=== PATIENT | female | born 1995 | race Caucasian/White ===

== ENCOUNTER 2017-10-21 11:20 | Emergency (ER) | payer SELFPAY ==
--- NOTE | 2017-10-21 11:43 | PDOC ---
History of Present Illness - General Chief Complaint: Psychiatric Stated Complaint: PANIC ATTACK Time Seen by Provider: 10/21/17 11:30 History Source: Patient Exam Limitations: No Limitations - History of Present Illness Initial Comments: 10/21/17 12:55 Ms Watson is a 22 yo F with a prior history of migraines and panic attacks. Patient states that she was at work today, she works at a [employer]. While there she felt something come over her, she lowered herself to the ground , and close her eyes. When she opened her eyes she felt that she had tunnel vision or difficulty seeing. Patient denies chest pain, palpitations. Patient denies shortness of breath. Patient denies focal weakness or numbness. States because of her reaction, her employer called EMS. Patient states she's had similar symptoms to this, last one was 6 months ago. At that time she was taking Lexapro. She's discontinued her use of Lexapro because she had been doing well. Currently she denies suicidality, homicidality. She denies auditory or visual hallucination. PMH: Migraines, Panic Attacks Past surgical history: Denies Medication: Lexapro discontinued ALLERGIES: Bactrim --> rash She denies excessive alcohol use, denies drug or cigarette use GENERAL/CONSTITUTIONAL: No: fever, chills, weakness, loss of appetite. HEAD, EYES, EARS, NOSE AND THROAT: No: change in vision, ear pain, discharge, sore throat, throat swelling. CARDIOVASCULAR: No: chest pain, lightheadedness, palpitations, syncope RESPIRATORY: No: cough, shortness of breath, wheezing, hemoptysis, stridor. GASTROINTESTINAL: No: nausea, vomiting, diarrhea, abdominal cramping, rectal bleeding, constipation. GENITOURINARY: No: dysuria, hematuria, frequency, urgency, flank pain. MUSCULOSKELETAL: No: back pain, neck pain, joint pain, muscle swelling or pain SKIN AND BREASTS: No: lesions, pallor, rash or easy bruising. NEUROLOGIC: No: headache, vertigo, paresthesias, weakness ENDOCRINE: No: unexplained weight gain or loss HEMATOLOGIC/LYMPHATIC: No: anemia, easy bleeding, swelling nodes. GENERAL: The patient is in no acute distress, speaking in clear and complete sentences. HEAD: Normal with no signs of trauma. EYES: PERRLA, EOMI, sclera anicteric, conjunctiva clear. ENT: Ears normal, nares patent, oropharynx clear without exudates. Moist mucous membranes. NECK: Normal range of motion, supple LUNGS: Breath sounds equal, clear to auscultation bilaterally. No wheezes, and no crackles. HEART:Regular rate and rhythm, normal S1 and S2 without murmur, rub or gallop. ABDOMEN: Soft, nontender, normoactive bowel sounds. No guarding, no rebound. No masses palpable. EXTREMITIES: Normal range of motion, no edema. NEUROLOGICAL: Cranial nerves II through XII grossly intact. Normal speech. No focal neurological deficits. SKIN: Warm, Dry, normal turgor, no rashes or lesions noted. Past History - Past Medical History Allergies/Adverse Reactions: Allergies Allergy/AdvReac Type Severity Reaction Status Date / Time sulfamethoxazole Allergy Verified 10/21/17 11:22 [From Bactrim] trimethoprim [From Bactrim] Allergy Verified 10/21/17 11:22 Home Medications: Ambulatory Orders Escitalopram Oxalate [Lexapro -] 20 mg PO DAILY 10/21/17 ED Treatment Course - LABORATORY CBC & Chemistry Diagram: 10/21/17 12:17 10/21/17 12:17 Medical Decision Making - Medical Decision Making 10/21/17 12:57 If he presents emergency department status post an episode which she likens to a panic attack. There are some features that are consistent with a vasovagal episode. Patient also states she has had a headache. She woke with this headache, this feels similar to her prior headaches. Will do: Basic labs IV Fluids [facility] EKG Doubt SAH, Pt is on OCPs, but doubt PE Will eval for Will eval for arrhythmia Will re assess 10/21/17 12:59 EKG: Twelve-lead EKG was performed and reviewed by me. There is normal sinus rhythm with a normal rate. The axis is normal. The intervals are normal. There are no ST or T wave abnormalities. Impression: Normal twelve-lead EKG Laboratory Tests 10/21/17 10/21/17 10/21/17 12:17 12:17 12:17 WBC 7.3 Hgb 12.9 Hct 37.4 Plt Count 268 Sodium 131 L Potassium 3.9 Chloride 103 Carbon Dioxide 25 BUN 12 Creatinine 0.7 Random Glucose 106 Urine HCG, Qual Negative Patient states she feels better. Will discharged home. Last patient follow with both her primary care physician as well as her psychiatrist. Return to the emergency department for any other concerns or complaints *DC/Admit/Observation/Transfer Diagnosis at time of Disposition: Panic attack, Vasovagal episode - Discharge Dispostion Disposition: HOME Condition at time of disposition: Stable Admit: No - Referrals - Patient Instructions Printed Discharge Instructions: DI for Panic Disorder, DI for Syncope in Adults (Fainting) Additional Instructions: Ms Watson Negative for coming into the emergency department today. Please be sure to follow up with your primary care physician Return to the ER for any other concerns or complaints - Post Discharge Activity Forms/Work/School Notes: Back to Work
[2017-10-21] MEDS ORDERED: SODIUM CHLORIDE 1,000 ML IV STA (11:49)
[2017-10-21] MEDS ORDERED: ACETAMINOPHEN 325 MG TABLET (FP) PO ONE (11:49)
[2017-10-21] MEDS ORDERED: METOCLOPRAMIDE HCL INJECTION 10 MG/2 ML VIAL IVPUSH ONE (11:49)
[2017-10-21 12:20] LABS: BASO % 0.5 % (0-2.0); EOS % 0.3 % (0-4.5); HEMATOCRIT 37.4 % (32.4-45.2); HEMOGLOBIN 12.9 GM/dl (10.7-15.3); LYMPH % 28.1 % (8-40); MCH 32.6 pg (25.7-33.7); MCHC 34.5 g/dl (32.0-36.0); MEAN CELL VOLUME 94.6 fl (80-96); MEAN PLT VOLUME 7.1 fl (7.5-11.1); MONO % 6.5 % (3.8-10.2); NEUT % 64.6 % (42.8-82.8); PLATELET COUNT 268 K/MM3 (134-434); RBC 3.95 M/mm3 (3.60-5.2); RDW 11.7 % (11.6-15.6); WHITE BLOOD COUNT 7.3 K/mm3 (4.0-10.8)
[2017-10-21] MEDS ORDERED: ACETAMINOPHEN 325 MG TABLET (FP) ONE (12:30)
[2017-10-21 12:35] LABS: ALBUMIN 3.8 g/dl (3.5-5.0); ALK PHOS 50 U/L (32-92); ANION GAP 3 (8-16); BILIRUBIN,TOTAL 0.4 mg/dl (0.2-1.0); BLOOD UREA NITROGEN 12 mg/dl (7-18); CHLORIDE 103 mmol/L (98-107); CO2 25 mmol/L (22-28); CREATININE 0.7 mg/dl (0.6-1.3); GLUCOSE,RANDOM 106 mg/dl (74-106); POTASSIUM 3.9 mmol/L (3.5-5.1); SGOT/AST 31 U/L (10-42); SGPT/ALT 20 U/L (10-40); SODIUM 131 mmol/L (136-145)
[2017-10-21 13:16] VITALS: BP 120/87; PULSE 83; TEMP 98.9; BMI 19.5
--- NOTE | 2017-10-22 18:45 | EKG ---
Test Reason : Blood Pressure : / mmHG Vent. Rate : 061 BPM Atrial Rate : 061 BPM P-R Int : 160 ms QRS Dur : 074 ms QT Int : 390 ms P-R-T Axes : 075 020 016 degrees QTc Int : 392 ms NORMAL SINUS RHYTHM NORMAL ECG NO PREVIOUS ECGS AVAILABLE Confirmed by MD MALI, MANPREET ([id number]) on 10/22/2017 6:44:41 PM Referred By: ESTRELLA CID Confirmed By:MANPREET SAMSON MD
== END 2017-10-21 13:20 | disposition home or self-care (01) ==
LOC: FER 11:20
PROC: 3E033GC Introduction of Other Therapeutic Substance into Peripheral Vein, Percutaneous Approach (ICD-10-PCS; principal; 2017-10-21)
PROC: 3E0337Z Introduction of Electrolytic and Water Balance Substance into Peripheral Vein, Percutaneous Approach (ICD-10-PCS; 2017-10-21)
DX: F41.0 Panic disorder [episodic paroxysmal anxiety] (principal); R05 Cough; R55 Syncope and collapse
CPT/HCPCS: 36415; 80053; 84703; 85025; 93005; 99282-25